=== PATIENT | male | born 1995 | race American Indian/Alaskan Native ===

== ENCOUNTER 2019-10-30 10:28 | Emergency (ER) | payer MEDICAID ==
[2019-10-30] MEDS ORDERED: Ketorolac 60 MG/2 ML SDV IM ONE (11:27)
--- NOTE | 2019-10-30 12:38 | EDM.PDOC ---
ED HPI GENERAL MEDICAL PROBLEM - General Chief Complaint: General Stated Complaint: CHEST PAINS FOR WEEKS Time Seen by Provider: 10/30/19 11:15 Source of Information: Reports: Patient History Limitations: Reports: No Limitations - History of Present Illness INITIAL COMMENTS - FREE TEXT/NARRATIVE: Patient presented to the ED because of chest wall pain. He was playing salmon diving on the snow yesterday and then he felt pain over the left shoulder and left anterior chest pain. The pain is sharp,8/10, worse with breathing and movements. chest pain Pain Score (Numeric/FACES): 2 - Related Data Allergies Allergy/AdvReac Type Severity Reaction Status Date / Time No Known Allergies Allergy Verified 10/30/19 10:48 Home Meds: Home Meds Cyclobenzaprine [Flexeril] 10 mg PO TID PRN #15 tab 10/30/19 [Rx] Past Medical History Genitourinary History: Reports: Other (See Below) Other Genitourinary History: States episode of renal failure. Psychiatric History: Reports: ADHD, Autism, Depression - Past Surgical History Other HEENT Surgeries/Procedures: [place] teeth extraction. Social & Family History - Tobacco Use Years of Tobacco use: 5 - Recreational Drug Use Recreational Drug Use: No ED ROS GENERAL - Review of Systems Review Of Systems: See Below Constitutional: Reports: No Symptoms HEENT: Reports: No Symptoms Respiratory: Reports: No Symptoms Cardiovascular: Reports: Chest Pain Endocrine: Reports: No Symptoms GI/Abdominal: Reports: No Symptoms : Reports: No Symptoms Musculoskeletal: Reports: No Symptoms Skin: Reports: No Symptoms ED EXAM, GENERAL - Physical Exam Exam: See Below Exam Limited By: No Limitations General Appearance: Alert, WD/WN, No Apparent Distress Ears: Normal External Exam, Normal Canal, Hearing Grossly Normal Nose: Normal Inspection, Normal Mucosa, No Blood Throat/Mouth: Normal Inspection, Normal Lips, Normal Teeth, Normal Gums Head: Atraumatic, Normocephalic Neck: Normal Inspection, Supple, Non-Tender, Full Range of Motion Respiratory/Chest: No Respiratory Distress, Lungs Clear, Normal Breath Sounds, Other (tenderness left anterior chest wall) Cardiovascular: Normal Peripheral Pulses, Regular Rate, Rhythm, No Edema, No Gallop, No JVD, No Murmur, No Rub GI/Abdominal: Normal Bowel Sounds, Soft, Non-Tender, No Organomegaly Neurological: Alert, Oriented, CN II-XII Intact, Normal Cognition, Normal Gait, Normal Reflexes, Slow to Respond Skin Exam: Warm, Intact, Normal Color Course - Vital Signs Text/Narrative:: reassurance.patient refused to have toradol he said his pain is much better. Last Recorded V/S: Last Vital Signs Temp 37.2 C 10/30/19 10:42 Pulse 100 10/30/19 10:42 Resp 20 10/30/19 10:42 BP 132/87 10/30/19 10:42 Pulse Ox 98 10/30/19 10:42 - Orders/Labs/Meds Meds: Medications Discontinued Medications Generic Name Dose Route Start Last Admin Trade Name Freq PRN Reason Stop Dose Admin Ketorolac Tromethamine 60 mg 10/30/19 11:27 10/30/19 13:17 Toradol IM 10/30/19 11:28 Not Given ONETIME ONE Departure - Departure Time of Disposition: 12:40 Disposition: Home, Self-Care 01 Condition: Good Clinical Impression: Atypical chest pain - Discharge Information Prescriptions: Cyclobenzaprine [Flexeril] 10 mg PO TID PRN #15 tab PRN Reason: Muscle Spasm Instructions: Nonspecific Chest Pain, [id number] Referrals: Elias Olmos MD [Primary Care Provider] - Forms: ED Department Discharge Additional Instructions: please read discharge instructions on atypical chest pain apply ice or heat whichever makes your pain feel better flexeril 10 mg 3 times daily as needed for pain you may take ibuprofen 800 mg with tylenol 1000 mg every 8 hours as needed for pain follow up as needed Sepsis Event Note - Evaluation Sepsis Screening Result: No Definite Risk - Focused Exam Date Exam was Performed: 10/31/19 Time Exam was Performed: 13:34
== END 2019-10-30 12:53 | disposition home or self-care (01) ==
LOC: FB.ED 10:28
DX: R07.89 Other chest pain (principal); F17.290 Nicotine dependence, other tobacco product, uncomplicated
CPT/HCPCS: 99284

== ENCOUNTER 2020-04-28 15:46 | Emergency (ER) | payer MEDICAID ==
--- NOTE | 2020-04-28 15:52 | EDM.PDOC ---
ED HPI GENERAL MEDICAL PROBLEM - General Stated Complaint: CUT FINGER Time Seen by Provider: 04/28/20 15:52 Source of Information: Reports: Patient History Limitations: Reports: No Limitations - History of Present Illness INITIAL COMMENTS - FREE TEXT/NARRATIVE: 24-year-old male who states he was sharpening a knife at about 3:45 PM today and he got distracted and slice dorsal aspect of his left fifth finger and scraped the dorsal aspect of his left fourth finger. The bleeding has been controlled with direct pressure. He has normal sensation to the tip of his fingers. He has full function in the hand. He does have some pain in the area that is stinging and sharp pain that he rates as a 1/10. There are no other injuries. No nasal congestion. No cough. No sore throat. No difficulty breathing. No antecedent problems. There are no other associated signs or symptoms. There are no other modifying factors. 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 Psychiatric History: Reports: ADHD, Anxiety, Depression - Past Surgical History Other HEENT Surgeries/Procedures: [place] teeth extraction. Other Surgical History Comment: No previous surgeries. Social & Family History - Tobacco Use Smoking Status *Q: Current Every Day Smoker - Alcohol Use Alcohol Use History: Yes Alcohol Use Frequency: Socially (Occasionally) - Living Situation & Occupation Occupation: Employed (He works at the [employer].) Review of Systems - Review of Systems Review Of Systems: See Below Constitutional: Reports: No Symptoms (Last tetanus immunization was within the last year. He is up-to-date.) Eyes: Reports: No Symptoms Ears: Reports: No Symptoms Nose: Reports: Clear Discharge, Other (Chronic nasal congestion.) Mouth/Throat: Reports: No Symptoms Respiratory: Reports: No Symptoms Cardiovascular: Reports: No Symptoms GI/Abdominal: Reports: No Symptoms Genitourinary: Reports: No Symptoms Musculoskeletal: Reports: Other ([id number].) Skin: Reports: Wound (Laceration to left fifth finger and abrasion to left fourth finger) Neurological: Reports: No Symptoms ED EXAM, GENERAL - Physical Exam Exam: See Below Exam Limited By: No Limitations General Appearance: Alert, WD/WN, Anxious, Other (Nontoxic. Appears in no pain.) Eye Exam: Bilateral Eye: EOMI, Normal Inspection, Other (Sclera are anicteric.) Ears: Normal External Exam, Hearing Grossly Normal Ear Exam: Bilateral Ear: Auricle Normal Nose: No Blood, Clear Rhinorrhea Throat/Mouth: Normal Inspection, Normal Lips, Normal Oropharynx, Normal Voice, No Airway Compromise Head: Atraumatic, Normocephalic Neck: Normal Inspection, Supple, Non-Tender, Full Range of Motion Respiratory/Chest: No Respiratory Distress, Lungs Clear, Normal Breath Sounds, No Accessory Muscle Use, Chest Non-Tender Cardiovascular: Normal Peripheral Pulses, Regular Rate, Rhythm, No Murmur Peripheral Pulses: 2+: Radial (L), Radial (R) GI/Abdominal: Normal Bowel Sounds, Soft, Non-Tender, No Mass Back Exam: Normal Inspection, Full Range of Motion Extremities: Normal Range of Motion, Normal Capillary Refill Neurological: Alert, Oriented, CN II-XII Intact, Normal Cognition, No Motor/Sensory Deficits Psychiatric: Normal Affect Skin Exam: Warm, Dry, Normal Color, No Rash, Wound/Incision (3.5 cm laceration to the dorsal aspect of his left fifth finger over the mid proximal phalanx. Goes to the subcutaneous tissue. There is no tendon injury. There is also a scrape to the dorsal aspect of the proximal phalanx of the fourth finger.) Lymphatic: No Adenopathy ED TRAUMA EXTREMITY PROCEDURES - Laceration/Wound Repair Left Proximal Dorsal Digit - 5th (Baby) Lac/Wound Length In cm: 3.5 Appearance: Subcutaneous Distal NVT: Neuro & Vascular Intact, No Tendon Injury Anesthetic Type: Local Local Anesthesia - Lidocaine (Xylocaine): 1% Plain Local Anesthetic Volume: 3cc (Good anesthesia and no complications.) Skin Prep: Saline Saline Irrigation (cc's): 500 Exploration/Debridement/Repair: Wound Explored, In a Bloodless Field, No Foreign Material Found Closed With: Sutures Suture Size: 4-0 # of Sutures: 6 Suture Type: Running, Simple, Mattress Sterile Dressing Applied: Nurse Tetanus Status Addressed: Other (Patient has had a tetanus immunization within the past year.) Complications: No Course - Vital Signs Last Recorded V/S: Last Vital Signs Temp 36.8 C 04/28/20 16:11 Pulse 110 H 04/28/20 16:11 Resp 16 04/28/20 16:11 BP 131/66 04/28/20 16:11 Pulse Ox 98 04/28/20 16:11 - Re-Assessments/Exams Free Text/Narrative Re-Assessment/Exam: 04/28/20 16:35: Patient's wound was sutured. And an appropriate supportive dressing was applied to the area. There was no tendon involvement. Wound care instructions were given to the patient. Suture removal in 10 days. Precautions and reasons for return to the emergency department were discussed with the patient while he was in the emergency department and were detailed in the patient's discharge instructions. Departure - Departure Time of Disposition: 16:45 Disposition: Home, Self-Care 01 Condition: Good (Improved) Clinical Impression: Laceration of finger of left hand Qualifiers: Encounter type: initial encounter Finger: little finger Damage to nail status: without damage Foreign body presence: without foreign body Qualified Code(s): S61.217A - Laceration without foreign body of left little finger without damage to nail, initial encounter Abrasion of finger of left hand Qualifiers: Encounter type: initial encounter Qualified Code(s): S60.419A - Abrasion of unspecified finger, initial encounter - Discharge Information Instructions: Sutures, [place], or Adhesive Wound Closure, [id number], Sutured Wound Care, [id number] Referrals: Elias Olmos MD [Primary Care Provider] - Forms: ED Department Discharge Additional Instructions: Do not get the wound wet for 3 days. After 3 days, you may get the wound wet but do not immerse the wound in water. Avoid strenuous use with the left hand for the next 2 weeks. You may take Tylenol and ibuprofen as needed for pain. Back to the emergency department for marked increase in pain, redness, increased swelling, any signs of infection or any other concerning sign or symptom. Sepsis Event Note (ED) - Focused Exam Vital Signs: Vital Signs Temp Pulse Resp BP Pulse Ox 04/28/20 16:11 36.8 C 110 H 16 131/66 98
== END 2020-04-28 17:00 | disposition home or self-care (01) ==
LOC: FB.ED 15:46
DX: S61.217A Laceration without foreign body of left little finger without damage to nail, initial encounter (principal); F17.200 Nicotine dependence, unspecified, uncomplicated; W26.0XXA Contact with knife, initial encounter
CPT/HCPCS: 12002; 99282; J2001

== ENCOUNTER 2025-05-30 16:30 | Emergency (ER) | payer MEDICAID | END 2025-05-30 19:18 | disposition home or self-care (01) | LOC: FB.ED 16:30 | DX: S60.453A Superficial foreign body of left middle finger, initial encounter (principal); F17.200 Nicotine dependence, unspecified, uncomplicated; W45.8XXA Other foreign body or object entering through skin, initial encounter; Z79.899 Other long term (current) drug therapy | CPT/HCPCS: 99282; 99283; J2003 ==